=== PATIENT | male | born 1995 | race Caucasian/White ===

== ENCOUNTER 2023-02-07 21:18 | Emergency (ER) | payer MEDICAID, OTHER ==
[2023-02-07 21:41] VITALS: TEMP 98.2
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
[2023-02-07 22:18] LABS: Barbiturate,Urine NEGATIVE (NEGATIVE); Benzodiazepine,Urine NEGATIVE (NEGATIVE); Cocaine,Urine NEGATIVE (NEGATIVE); Methadone,Urine NEGATIVE (NEGATIVE); Opiate,Urine NEGATIVE (NEGATIVE); PCP,Urine NEGATIVE (NEGATIVE); THC,Urine POSITIVE (NEGATIVE)
[2023-02-07 22:21] VITALS: BP 141/81; PULSE 89; RESP 18; O2SAT 98
[2023-02-07 22:34] LABS: Amphetamine,Urine POSITIVE (NEGATIVE)
== END 2023-02-07 22:38 | disposition home or self-care (01) ==
LOC: ED 21:18
DX: Z02.89 Encounter for other administrative examinations (principal); F12.10 Cannabis abuse, uncomplicated; Z28.310 Unvaccinated for COVID-19; Z72.0 Tobacco use
CPT/HCPCS: 80307; 99282